=== PATIENT | male | born 1945 | race Caucasian/White ===

== ENCOUNTER → 2016-12-14 | Outpatient (CLI) | payer MEDICARE, MEDICAID ==
[~2016-12-14] MED LIST: ALLO300T2 PO; CEPH-460 PO; CLON0.1T PO; CLOP75TA PO; DILT180C PO; FISH1000 PO; FURO40TA PO; GABA300C5 PO; HYDR-3580 PO; HYDR0.05 TOPICAL; ISOS30TA15 PO; LISI-519 PO; METO50TA PO; OMEP20TA PO; OXYC-392 PO; POTA-163 PO; WARF-58 PO; ZOLP10TA3 PO
[2016-12-14 13:53] LABS: INTERNATIONAL NORMALIZED RATIO 1.9 RATIO; PROTHROMBIN TIME - PATIENT 21.6 SEC (9.8-11.6)
== END ==
LOC: PLAB 12:01
PROVIDERS: ATTEND Family Medicine
DX: I48.91 Unspecified atrial fibrillation (principal)
CPT/HCPCS: 36415; 85610

== ENCOUNTER → 2017-04-09 | Outpatient (CLI) | payer MEDICAID, MEDICARE ==
[2017-04-09 09:33] LABS: INTERNATIONAL NORMALIZED RATIO 1.5 RATIO; PROTHROMBIN TIME - PATIENT 17.4 SEC (9.8-11.6)
[2017-04-09 13:31] LABS: AUTOMATED NEUTROPHIL # 2.9 TH/MM3 (1.8-7.7); BASOPHIL % 0.8 % (0.0-2.0); EOSINOPHIL # 0.3 TH/MM3 (0-0.4); EOSINOPHIL % 5.2 % (0.0-4.0); LYMPH % 23.2 % (9.0-44.0); LYMPHOCYTE # 1.1 TH/MM3 (1.0-4.8); MEAN CELL VOLUME 86.4 FL (80.0-100.0); MEAN CORPUSCULAR HEMOGLOBIN 26.6 PG (27.0-34.0); MEAN CORPUSCULAR HGB CONC 30.7 % (32.0-36.0); MONO % 12.4 % (0.0-8.0); NEUT % 58.4 % (16.0-70.0); PLATELET COUNT 224 TH/MM3 (150-450); RED BLOOD COUNT 4.51 MIL/MM3 (4.50-5.90); RED CELL DISTRIBUTION WIDTH 16.9 % (11.6-17.2); WHITE BLOOD COUNT 4.9 TH/MM3 (4.0-11.0)
[2017-04-09 13:36] LABS: HEMO FLAGS AUTO DIFF
[2017-04-09 14:00] LABS: ANION GAP 6 MEQ/L (5-15); AST (GOT) 18 U/L (15-37); BICARBONATE 29.7 MEQ/L (21.0-32.0); BLOOD UREA NITROGEN 13 MG/DL (7-18); CHLORIDE 103 MEQ/L (98-107); GLOMERULAR FILTRATION RATE 84 ML/MIN (>89); GLUCOSE,FASTING 118 MG/DL (74-99); POTASSIUM 4.2 MEQ/L (3.5-5.1); SODIUM (NA) 139 MEQ/L (136-145)
[2017-04-09 14:06] LABS: PLATELET ESTIMATE SMEAR NORMAL (NORMAL); PLATELET MORPHOLOGY NORMAL (NORMAL); SCAN/DIFF AUTO DIFF CONFIRMED
[2017-04-09 14:11] LABS: ALKALINE PHOSPHATASE 115 U/L (45-117); ALT (GPT) 15 U/L (12-78); HDL CHOLESTEROL 38.6 MG/DL (40.0-60.0); LDL CHOLESTEROL 124 MG/DL (0-99); TOTAL BILIRUBIN ADULT 0.9 MG/DL (0.2-1.0)
== END ==
LOC: PLAB 08:10
PROVIDERS: ATTEND Family Medicine
DX: E78.5 Hyperlipidemia, unspecified (principal); I73.9 Peripheral vascular disease, unspecified; I48.91 Unspecified atrial fibrillation; Z68.30 Body mass index [BMI] 30.0-30.9, adult
CPT/HCPCS: 36415; 80053; 80061; 84443; 85025; 85610

== ENCOUNTER → 2017-08-16 | Outpatient (CLI) | payer MEDICARE ==
[2017-08-16 16:08] LABS: INTERNATIONAL NORMALIZED RATIO 1.9 RATIO; PROTHROMBIN TIME - PATIENT 21.6 SEC (9.8-11.6)
[2017-08-16 16:18] LABS: HEMATOCRIT 39.9 % (39.0-51.0); MEAN CELL VOLUME 87.8 FL (80.0-100.0); MEAN CORPUSCULAR HEMOGLOBIN 27.8 PG (27.0-34.0); MEAN CORPUSCULAR HGB CONC 31.6 % (32.0-36.0); PLATELET COUNT 220 TH/MM3 (150-450); RED BLOOD COUNT 4.54 MIL/MM3 (4.50-5.90); RED CELL DISTRIBUTION WIDTH 17.7 % (11.6-17.2); REVIEW FLAG FINAL; WHITE BLOOD COUNT 5.2 TH/MM3 (4.0-11.0)
[2017-08-16 16:32] LABS: ANION GAP 10 MEQ/L (5-15); AST (GOT) 16 U/L (15-37); BICARBONATE 26.1 MEQ/L (21.0-32.0); BLOOD UREA NITROGEN 18 MG/DL (7-18); CHLORIDE 101 MEQ/L (98-107); GLOMERULAR FILTRATION RATE 66 ML/MIN (>89); GLUCOSE,FASTING 95 MG/DL (74-99); POTASSIUM 4.4 MEQ/L (3.5-5.1); SODIUM (NA) 137 MEQ/L (136-145)
[2017-08-16 16:33] LABS: ALT (GPT) 15 U/L (12-78)
[2017-08-16 16:42] LABS: ALKALINE PHOSPHATASE 124 U/L (45-117); HDL CHOLESTEROL 32.1 MG/DL (40.0-60.0); LDL CHOLESTEROL 137 MG/DL (0-99); TOTAL BILIRUBIN ADULT 0.9 MG/DL (0.2-1.0)
== END ==
LOC: PLAB 08-09 13:42
PROVIDERS: ATTEND Family Medicine
DX: E78.5 Hyperlipidemia, unspecified (principal); I73.9 Peripheral vascular disease, unspecified; I48.91 Unspecified atrial fibrillation
CPT/HCPCS: 36415; 80053; 80061; 84443; 85027; 85610

== ENCOUNTER → 2017-12-07 | Outpatient (CLI) | payer MEDICARE ==
[~2017-12-07] MED LIST changes: -ISOS30TA15 PO; +ISOS30TA17 PO; -OMEP20TA PO; +OMEP20TA93 PO
[2017-12-07 16:52] LABS: INTERNATIONAL NORMALIZED RATIO 2.7 RATIO; PROTHROMBIN TIME - PATIENT 27.1 SEC (9.8-11.6)
[2017-12-07 17:28] LABS: HEMATOCRIT 37.4 % (39.0-51.0); HEMOGLOBIN 12.2 GM/DL (13.0-17.0); MEAN CELL VOLUME 90.7 FL (80.0-100.0); MEAN CORPUSCULAR HEMOGLOBIN 29.7 PG (27.0-34.0); MEAN CORPUSCULAR HGB CONC 32.7 % (32.0-36.0); MEAN PLATELET VOLUME 9.5 FL (7.0-11.0); PLATELET COUNT 246 TH/MM3 (150-450); RED BLOOD COUNT 4.13 MIL/MM3 (4.50-5.90); RED CELL DISTRIBUTION WIDTH 16.2 % (11.6-17.2); WHITE BLOOD COUNT 5.5 TH/MM3 (4.0-11.0)
[2017-12-07 17:33] LABS: ALBUMIN 3.2 GM/DL (3.4-5.0); ALT (GPT) 19 U/L (12-78); AST (GOT) 14 U/L (15-37); BICARBONATE 28.3 MEQ/L (21.0-32.0); BLOOD UREA NITROGEN 16 MG/DL (7-18); CALCIUM 8.8 MG/DL (8.5-10.1); CHLORIDE 97 MEQ/L (98-107); CHOLESTEROL 183 MG/DL (120-200); CREATININE 1.36 MG/DL (0.60-1.30); GLOMERULAR FILTRATION RATE 52 ML/MIN (>89); GLUCOSE,FASTING 103 MG/DL (74-99); SODIUM (NA) 131 MEQ/L (136-145)
[2017-12-07 17:43] LABS: ALKALINE PHOSPHATASE 123 U/L (45-117); CHOLESTEROL/ HDL RATIO 6.12 RATIO; HDL CHOLESTEROL 29.9 MG/DL (40.0-60.0); LDL CHOLESTEROL 135 MG/DL (0-99); TOTAL PROTEIN 7.5 GM/DL (6.4-8.2); TRIGLYCERIDES 93 MG/DL (42-150)
== END ==
LOC: PLAB 14:38
PROVIDERS: ATTEND Family Medicine
DX: E78.5 Hyperlipidemia, unspecified (principal); I73.9 Peripheral vascular disease, unspecified; I48.91 Unspecified atrial fibrillation; M1A.0790 Idiopathic chronic gout, unspecified ankle and foot, without tophus (tophi)
CPT/HCPCS: 36415; 80053; 80061; 84443; 84550; 85027; 85610

== ENCOUNTER → 2018-03-08 | Outpatient (CLI) | payer MEDICARE ==
[2018-03-08 15:02] LABS: INTERNATIONAL NORMALIZED RATIO 2.2 RATIO; PROTHROMBIN TIME - PATIENT 22.5 SEC (9.8-11.6)
[2018-03-08 18:32] LABS: BICARBONATE 28.4 MEQ/L (21.0-32.0); CALCIUM 9.2 MG/DL (8.5-10.1); CREATININE 1.48 MG/DL (0.60-1.30)
== END ==
LOC: PLAB 12:17
PROVIDERS: ATTEND Family Medicine
DX: I48.91 Unspecified atrial fibrillation (principal); N28.9 Disorder of kidney and ureter, unspecified
CPT/HCPCS: 36415; 80048; 85610

== ENCOUNTER → 2018-04-19 | Outpatient (CLI) | payer MEDICARE ==
[2018-04-19 14:39] LABS: INTERNATIONAL NORMALIZED RATIO 3.5 RATIO; PROTHROMBIN TIME - PATIENT 35.6 SEC (9.8-11.6)
[2018-04-19 17:41] LABS: ALBUMIN 3.5 GM/DL (3.4-5.0); AST (GOT) 20 U/L (15-37); BICARBONATE 26.7 MEQ/L (21.0-32.0); BLOOD UREA NITROGEN 16 MG/DL (7-18); CALCIUM 9.1 MG/DL (8.5-10.1); CHLORIDE 100 MEQ/L (98-107); CREATININE 1.42 MG/DL (0.60-1.30); GLOMERULAR FILTRATION RATE 49 ML/MIN (>89); GLUCOSE,FASTING 108 MG/DL (74-99); SODIUM (NA) 136 MEQ/L (136-145)
[2018-04-19 17:48] LABS: HEMATOCRIT 36.9 % (39.0-51.0); HEMOGLOBIN 11.5 GM/DL (13.0-17.0); MEAN CELL VOLUME 87.3 FL (80.0-100.0); MEAN CORPUSCULAR HEMOGLOBIN 27.3 PG (27.0-34.0); MEAN CORPUSCULAR HGB CONC 31.2 % (32.0-36.0); PLATELET COUNT 216 TH/MM3 (150-450); RED BLOOD COUNT 4.22 MIL/MM3 (4.50-5.90); RED CELL DISTRIBUTION WIDTH 17.6 % (11.6-17.2); WHITE BLOOD COUNT 4.6 TH/MM3 (4.0-11.0)
[2018-04-19 17:52] LABS: ALKALINE PHOSPHATASE 125 U/L (45-117); ALT (GPT) 20 U/L (12-78); CHOLESTEROL 148 MG/DL (120-200); CHOLESTEROL/ HDL RATIO 4.44 RATIO; HDL CHOLESTEROL 33.3 MG/DL (40.0-60.0); LDL CHOLESTEROL 97 MG/DL (0-99); TOTAL PROTEIN 7.2 GM/DL (6.4-8.2); TRIGLYCERIDES 89 MG/DL (42-150)
== END ==
LOC: PLAB 13:19
PROVIDERS: ATTEND Family Medicine
DX: I10 Essential (primary) hypertension (principal); I48.91 Unspecified atrial fibrillation; E78.5 Hyperlipidemia, unspecified; R73.01 Impaired fasting glucose; M10.09 Idiopathic gout, multiple sites; I70.1 Atherosclerosis of renal artery; I73.9 Peripheral vascular disease, unspecified
CPT/HCPCS: 36415; 80053; 80061; 84443; 84550; 85027; 85610

== ENCOUNTER 2018-08-03 13:26 | Inpatient (IN) ==
[2018-08-03] MEDS ORDERED: Naloxone Inj 0.4 MG/ML Vial ONE (13:29)
[2018-08-03] MEDS ORDERED: Naloxone Inj 2 MG/2 ML Vial IV.PUSH ONE (13:36)
--- NOTE | 2018-08-03 14:00 | CT ---
EXAM DATE: 08/03/2018 1:55 PM EDT AGE/SEX: 73 years / Male INDICATIONS: Fell and hit head, on blood thinners. Lethargic. CLINICAL DATA: This is the patient's initial encounter. Patient reports that signs and symptoms have been present for 1 day and indicates a pain score of 0/10. MEDICAL/SURGICAL HISTORY: Cardiovascular disease. Coronary artery stent. RADIATION DOSE: 56.35 CTDI (mGy) COMPARISON: No prior exams available for comparison. TECHNIQUE: CT of the head without contrast. Using automated exposure control and adjustment of the mA and/or kV according to patient size, radiation dose was kept as low as reasonably achievable to ob tain optimal diagnostic quality images. DICOM format image data is available electronically for revi ew and comparison. FINDINGS: Cerebrum: The ventricles are normal for age. There is decreased attenuation the periventricular whit e matter most consistent with microvascular ischemic demyelinative change. No evidence of midline marci ft, mass lesion, hemorrhage or acute infarction. No extraaxial fluid collections are seen. Posterior Fossa: The cerebellum and brainstem are intact. The 4th ventricle is midline. The cerebe llopontine angle is unremarkable. Extracranial: The visualized portion of the orbits is intact. Skull: The calvaria is intact. No evidence of skull fracture. CONCLUSION: 1. Microvascular ischemic demyelinative change. No acute intracranial abnormality identified. Electronically signed by: Nelson Franz MD 08/03/2018 1:59 PM EDT
[2018-08-03 14:14] LABS: ABG Base Excess -0.8 mmol/L (-2-2); ABG PCO2 47 mmHg (38-42); ABG PO2 98 mmHg (61-120)
[2018-08-03] MEDS ORDERED: Atropine Inj 1 MG/10 ML Syringe IV.PUSH ONE ×2 (14:21→15:08)
[2018-08-03 14:28] LABS: Baso % (Auto) 0.6 % (0.0-2.0); Eos # (Auto) 0.1 th/mm3 (0.0-0.4); Eos % (Auto) 0.8 % (0.0-4.0); Hematocrit 41.2 % (39.0-51.0); Hemoglobin 12.7 gm/dL (13.0-17.0); Lymph # (Auto) 0.7 th/mm3 (1.0-4.8); Lymph % (Auto) 10.5 % (9.0-44.0); Mean Corpuscular Hemoglobin 27.1 pg (27.0-34.0); Mono # (Auto) 0.6 th/mm3 (0.0-0.9); Mono % (Auto) 8.7 % (0.0-8.0); Neut # (Auto) 5.4 th/mm3 (1.8-7.7); Neut % (Auto) 79.4 % (16.0-70.0); Platelet Count 245 th/mm3 (150-450); Red Blood Count 4.68 mil/mm3 (4.50-5.90); Red Cell Distribution Width 18.1 % (11.6-17.2); White Blood Count 6.8 th/mm3 (4.0-11.0)
[2018-08-03 14:35] LABS: INR 1.8 Ratio; Prothrombin Time 17.8 sec (9.8-11.6)
[2018-08-03 14:39] LABS: Mean Corpuscular HGB Conc 30.8 % (32.0-36.0)
[2018-08-03 14:53] LABS: Alanine Aminotransferase 31 U/L (12-78); Albumin 3.8 g/dL (3.4-5.0); Anion Gap 10 meq/L (5-15); Calcium 8.7 mg/dL (8.5-10.1); Carbon Dioxide 26.4 meq/L (21.0-32.0); Chloride 102 meq/L (98-107); Glomerular Filtration Rate 44 mL/min (>89); Glucose,Random 146 mg/dL (74-106); Potassium 4.4 meq/L (3.5-5.1); Sodium 138 meq/L (136-145)
[2018-08-03 15:03] LABS: Alkaline Phosphatase 126 U/L (45-117); Aspartate Aminotransferase 42 U/L (15-37); Blood Urea Nitrogen 24 mg/dL (7-18); Troponin I 0.03 ng/mL (0.02-0.05)
--- NOTE | 2018-08-03 15:25 | ED ---
HPI General Chief Complaint: Altered Mental Status Stated Complaint: medical Time Seen by Provider: 08/03/18 13:36 Source: family and EMS Mode of arrival: EMS Limitations: altered mental status History of Present Illness HPI narrative: Is a 73-year-old man presents emerged department altered mental status and falls. According to the friend who is with him was known him for several decades, she left the house this morning to go to a doctor's appointment. He had been on pain medicine in the past but had not been on anything recently. His son was there with him. She got a call that he had fallen when she went there found him altered, sedated, still drowsy, and with bruises and bleeding from what was reported by the son to be multiple falls. He is on blood thinners. The son that he was with does have a known history of substance abuse. She denies that the patient himself has a history of substance abuse or opioid/pain medicine misuse. No other complaints. Related Data Allergies Allergy/AdvReac Type Severity Reaction Status Date / Time metoclopramide AdvReac Severe Confusion Verified 08/03/18 13:30 ranitidine AdvReac Severe Confusion Verified 08/03/18 13:30 Review of Systems ROS Unobtainable ROS Unobtainable: unobtainable due to mental condition PMFSH Medical History Medical History Afib (Chronic) CAD (coronary artery disease) (Chronic) CHF (congestive heart failure) (Chronic) Diabetes (Chronic) Gout (Chronic) HLD (hyperlipidemia) (Chronic) Hypertension (Chronic) Social History Social History Substance History: No History of Abuse Second Hand Smoke Exposure: Yes Smoking Status: Current every day smoker Tobacco Type: Cigarettes How Often Do You Have a Drink Containing Alcohol: Never Recent Travel in [place] within the Last 8 Weeks: No Recent Out of Country Travel within the Last 8 Weeks: No Immunization History Tetanus Immunization: Unsure Hx Influenza Vaccine This Season: No Exam Narrative Exam Narrative: GENERAL: 73-year-old man, sluggishly responsive, drowsy. SKIN: Focused skin assessment warm/dry. HEAD: Normocephalic. A lot of bruising on the face and some tenderness and a swollen lip in the front. There is no significant facial tenderness. No obvious deformity. EYES: Miotic pupils. ENT: No nasal bleeding or discharge. Mucous membranes pink and moist. NECK: Moves neck freely. No midline tenderness. CARDIOVASCULAR: Rate is slow. Somewhat irregular. RESPIRATORY: No accessory muscle use. Clear to auscultation. Breath sounds equal bilaterally. GASTROINTESTINAL: Abdomen soft, non-tender, nondistended. Hepatic and splenic margins not palpable. MUSCULOSKELETAL: No obvious deformities. No clubbing. No cyanosis. No edema. NEUROLOGICAL: Decreased alertness. Falls asleep mid sentence. Generally easily arousable. No obvious cranial nerve deficits. Motor grossly within normal limits. Normal speech. PSYCHIATRIC: Appropriate mood and affect; insight and judgment normal. Course Initial Documented Vital Signs Pulse Rate 43 L 08/03/18 13:31 Respiratory Rate 6 L 08/03/18 13:31 Blood Pressure 187/77 H 08/03/18 13:31 Pulse Oximetry 99 08/03/18 13:31 Last Documented Vital Signs Pulse Rate 43 L 08/03/18 14:04 Respiratory Rate 9 L 08/03/18 14:04 Blood Pressure 187/84 H 08/03/18 14:04 Pulse Oximetry 100 08/03/18 14:04 Medical Decision Making MDM Narrative Medical decision making narrative: 73-year-old male with altered mental status, sluggishly responsive miotic pupils suggestive of opioid poisoning. Some response to Narcan but not complete. Possible other ingestion as well. Patient also bradycardic. This could be contributing mental status or could be a secondary effect of toxic encephalopathy. Some response to Narcan. Electrolytes are unremarkable. Will plan admission to CICU for evaluation for A. fib with SVR and altered mental status from presumed toxic encephalopathy. Medical Screen Exam Complete: Yes Emergency Medical Condition: Yes Lab Data Lab results reviewed: Yes I reviewed the patient's lab results. Result diagrams: 08/03/18 13:58 08/03/18 13:58 Lab Results 08/03/18 08/03/1818 Range/Units 13:58 13:58 13:58 WBC 6.8 (4.0-11.0) th/mm3 RBC 4.68 (4.50-5.90) mil/mm3 Hgb 12.7 L (13.0-17.0) gm/dL Hct 41.2 (39.0-51.0) % MCV 88.0 (80.0-100.0) fL MCH 27.1 (27.0-34.0) pg MCHC 30.8 L (32.0-36.0) % RDW 18.1 H (11.6-17.2) % Plt Count 245 (150-450) th/mm3 MPV 10.0 (7.0-11.0) fL Neut % (Auto) 79.4 H (16.0-70.0) % Lymph % (Auto) 10.5 (9.0-44.0) % [place] % (Auto) 8.7 H (0.0-8.0) % Eos % (Auto) 0.8 (0.0-4.0) % Baso % (Auto) 0.6 (0.0-2.0) % Neut # (Auto) 5.4 (1.8-7.7) th/mm3 Lymph # (Auto) 0.7 L (1.0-4.8) th/mm3 [place] # (Auto) 0.6 (0.0-0.9) th/mm3 Eos # (Auto) 0.1 (0.0-0.4) th/mm3 Baso # (Auto) 0.0 (0.0-0.2) th/mm3 WBC Differential . Differential Comment Auto diff final PT 17.8 H (9.8-11.6) sec INR 1.8 Ratio Puncture Site Patient Temperature O2 Saturation (90-100) % ABG pH (7.380-7.420) ABG pCO2 (38-42) mmHg ABG pO2 (61-120) mmHg ABG HCO3 (22-26) mmol/L ABG O2 Content (12.0-20.0) Vol % ABG Base Excess (-2-2) mmol/L ABG Methemoglobin (0-2) % Hemoglobin (12.0-16.0) G/DL Carboxyhemoglobin (0-4) % O2 Delivery Device Liter Flow L/M Critical Value Sodium 138 (136-145) meq/L Potassium 4.4 (3.5-5.1) meq/L Chloride 102 (98-107) meq/L Carbon Dioxide 26.4 (21.0-32.0) meq/L Anion Gap 10 (5-15) meq/L BUN 24 H (7-18) mg/dL Creatinine 1.55 H (0.60-1.30) mg/dL Estimated GFR 44 L (>89) mL/min Random Glucose 146 H (74-106) mg/dL Calcium 8.7 (8.5-10.1) mg/dL Total Bilirubin 1.0 (0.2-1.0) mg/dL AST 42 H (15-37) U/L ALT 31 (12-78) U/L Alkaline Phosphatase 126 H (45-117) U/L Troponin I 0.03 (0.02-0.05) ng/mL Total Protein 8.0 (6.4-8.2) g/dL Albumin 3.8 (3.4-5.0) g/dL Serum Alcohol Less than 3 (0-5) mg/dL 08/03/18 Range/Units 14:10 WBC (4.0-11.0) th/mm3 RBC (4.50-5.90) mil/mm3 Hgb (13.0-17.0) gm/dL Hct (39.0-51.0) % MCV (80.0-100.0) fL MCH (27.0-34.0) pg MCHC (32.0-36.0) % RDW (11.6-17.2) % Plt Count (150-450) th/mm3 MPV (7.0-11.0) fL Neut % (Auto) (16.0-70.0) % Lymph % (Auto) (9.0-44.0) % [place] % (Auto) (0.0-8.0) % Eos % (Auto) (0.0-4.0) % Baso % (Auto) (0.0-2.0) % Neut # (Auto) (1.8-7.7) th/mm3 Lymph # (Auto) (1.0-4.8) th/mm3 [place] # (Auto) (0.0-0.9) th/mm3 Eos # (Auto) (0.0-0.4) th/mm3 Baso # (Auto) (0.0-0.2) th/mm3 WBC Differential Differential Comment PT (9.8-11.6) sec INR Ratio Puncture Site Left brachial Patient Temperature 98.6 O2 Saturation 94 (90-100) % ABG pH 7.33 L (7.380-7.420) ABG pCO2 47 H (38-42) mmHg ABG pO2 98 (61-120) mmHg ABG HCO3 24 (22-26) mmol/L ABG O2 Content 16.2 (12.0-20.0) Vol % ABG Base Excess -0.8 (-2-2) mmol/L ABG Methemoglobin 0.6 (0-2) % Hemoglobin 12.2 (12.0-16.0) G/DL Carboxyhemoglobin 2.3 (0-4) % O2 Delivery Device Nasal cannula Liter Flow 2.00 L/M Critical Value No Sodium (136-145) meq/L Potassium (3.5-5.1) meq/L Chloride (98-107) meq/L Carbon Dioxide (21.0-32.0) meq/L Anion Gap (5-15) meq/L BUN (7-18) mg/dL Creatinine (0.60-1.30) mg/dL Estimated GFR (>89) mL/min Random Glucose (74-106) mg/dL Calcium (8.5-10.1) mg/dL Total Bilirubin (0.2-1.0) mg/dL AST (15-37) U/L ALT (12-78) U/L Alkaline Phosphatase (45-117) U/L Troponin I (0.02-0.05) ng/mL Total Protein (6.4-8.2) g/dL Albumin (3.4-5.0) g/dL Serum Alcohol (0-5) mg/dL Imaging Data Radiologist's impression: Head CT 08/03/18 13:37 CONCLUSION: 1. Microvascular ischemic demyelinative change. No acute intracranial abnormality identified. Negative. Discharge Plan Discharge Disposition Patient Disposition: 30 Still Patient Discharge Details Diagnosis: Encephalopathy, toxic, Atrial fibrillation with slow ventricular response Physicians Team ED Provider: Dennis Larry Primary Care Provider: Anjelica Garcia Discharge Interventions Interventions: Vital Signs Last Done: 08/03/18 15:14 Status ED Status: With Doctor
[2018-08-03] MEDS ORDERED: Bisacodyl 10 MG Supp RECTAL PRN (15:39)
[2018-08-03] MEDS ORDERED: Enoxaparin Inj 40 MG/0.4 ML Syringe SQ SCH ×2 (15:45→18:00)
--- NOTE | 2018-08-03 16:02 | P.HP ---
History of Present Illness Primary Care Physician: Anjelica Garcia MD Chief Complaint: altered mental status History of Present Illness: 73-year-old man presents emerged department altered mental status and falls. According to the friend who is with him was known him for several decades, she left the house this morning to go to a doctor's appointment. He had been on pain medicine in the past but had not been on anything recently. His son was there with him. She got a call that he had fallen when she went there found him altered, sedated, still drowsy, and with bruises and bleeding from what was reported by the son to be multiple falls. He is on blood thinners. The son that he was with does have a known history of substance abuse. She denies that the patient himself has a history of substance abuse or opioid/pain medicine misuse. No other complaints. Patient takes lortabs at times for chorionic pain. Patient is on coumadin 3 mg po daily, INR is 1.8. CT head no signs of bleeding Past surgical and family history obtained from records and per discussion with daughter by phone: Cardiac cath, bipass ( surgical) Family Hx : mother leukemia. Stroke grandmother - Diagnosis (1) Encephalopathy, toxic (2) Atrial fibrillation with slow ventricular response Inpatient Certification: I certify that the inpatient services were ordered in accordance with Medicare regulations governing the order. This includes certification that hospital inpatient services are reasonable and necessary and in the case of services not specified as inpatient-only under 42 CFR 419.22(n), that they are appropriately provided as inpatient services in accordance to with the 2-midnight benchmark under 43 CFR 412.3(e) Estimated Total Length of Stay (Days): 3 Plans for Post Hospital Care: Not yet determined Review of Systems All other systems reviewed negative except as stated in HPI, unobtainable due to mental status PMFSH - History History Provided By: Patient, Family Member (daughter by phone and girlfriend at bedside ) - Medical History Medical History: Medical History (Last Reviewed 08/03/18 @ 17:05 by Jessica Barros MD) Afib CAD (coronary artery disease) CHF (congestive heart failure) Diabetes Gout HLD (hyperlipidemia) Hypertension - Surgical History Surgical History: Surgical History (Last Reviewed 08/03/18 @ 17:05 by Jessica Barros MD) H/O aortic valve replacement - Tobacco History Second Hand Smoke Exposure: Yes Tobacco Use In Past 30 Days: Yes Smoking Status: Current every day smoker Tobacco Type: Cigarettes - Alcohol History How Often Do You Have a Drink Containing Alcohol: Never - Substance Use History Substance History: No History of Abuse - Travel History Recent Travel in the [place] Within the Last 8 Weeks: No Recent Travel Out of the Country Within the Last 8 Weeks: No - Immunization History Tetanus Immunization: Unsure Hx Influenza Vaccine This Season: No Medications and Allergies Active Medications: Active Medications Al Hydroxide/Mg Hydroxide (Milk Of Magnesia Liq) 30 ml PO Q12H PRN PRN Reason: Mild Constipation Bisacodyl (Dulcolax Supp) 10 mg RECTAL DAILY PRN PRN Reason: SEVERE CONSITIPATION Enoxaparin Sodium (Lovenox Inj) 40 mg SQ Q24H GHAZAL Sodium Chloride (Ns Inj) 1,000 mls @ 100 mls/hr IV.CONT .Q10H GHAZAL Lactulose (Lactulose Liq) 30 ml PO DAILY PRN PRN Reason: SEVERE CONSITIPATION Ondansetron HCl (Zofran Inj) 4 mg IV.PUSH Q6H PRN PRN Reason: NAUSEA OR VOMITING Senna/Docusate Sodium (Toshia-Colace) 1 tab PO BID GHAZAL Sennosides (Senokot) 17.2 mg PO Q12H PRN PRN Reason: Moderate Constipation Allergies Allergy/AdvReac Type Severity Reaction Status Date / Time metoclopramide AdvReac Severe Confusion Verified 08/03/18 13:30 ranitidine AdvReac Severe Confusion Verified 08/03/18 13:30 Exam Vital signs: Vital Signs 08/03/18 13:31 08/03/18 14:04 08/03/18 15:14 Pulse Rate 43 L 43 L 47 L Respiratory Rate 6 L 9 L 10 L Blood Pressure 187/77 H 187/84 H 123/71 Pulse Oximetry 99 100 99 Intake & Output 08/02/18 08/03/18 08/03/18 18:59 06:59 18:59 Weight 84.822 kg Narrative: GENERAL: Elderly male, lethargic. SKIN: Warm and dry. HEAD: Normocephalic. Multiple bruising on the face and some tenderness and a swollen lip in the front. There is no significant facial tenderness. No obvious deformity. EYES: Pupils equal and round. No scleral icterus. No injection or drainage. ENT: No nasal bleeding or discharge. Mucous membranes pink and moist. NECK: Trachea midline. No JVD. CARDIOVASCULAR: Irregular rate and rhythm, bradycardic RESPIRATORY: No accessory muscle use. Clear to auscultation. Breath sounds equal bilaterally. GASTROINTESTINAL: Abdomen soft, non-tender, nondistended. MUSCULOSKELETAL: Extremities without clubbing, cyanosis, or edema. No obvious deformities. NEUROLOGICAL: Altered mental status, lethargic. Falls asleep mid sentence, but easily arousable. No obvious cranial nerve deficits. Motor grossly within normal limits. Normal speech. PSYCHIATRIC: Appropriate mood and affect; insight and judgment normal. Results - Labs CBC & Chem 7: 08/03/18 13:58 08/03/18 13:58 Labs: Laboratory Results - last 24 hr 08/03/18 08/03/18 08/03/18 13:58 13:58 13:58 WBC 6.8 RBC 4.68 Hgb 12.7 L Hct 41.2 MCV 88.0 MCH 27.1 MCHC 30.8 L RDW 18.1 H Plt Count 245 MPV 10.0 Neut % (Auto) 79.4 H Lymph % (Auto) 10.5 [place] % (Auto) 8.7 H Eos % (Auto) 0.8 Baso % (Auto) 0.6 Neut # (Auto) 5.4 Lymph # (Auto) 0.7 L [place] # (Auto) 0.6 Eos # (Auto) 0.1 Baso # (Auto) 0.0 WBC Differential . Differential Comment Auto diff final PT 17.8 H INR 1.8 Puncture Site Patient Temperature O2 Saturation ABG pH ABG pCO2 ABG pO2 ABG HCO3 ABG O2 Content ABG Base Excess ABG Methemoglobin Hemoglobin Carboxyhemoglobin O2 Delivery Device Liter Flow Critical Value Sodium 138 Potassium 4.4 Chloride 102 Carbon Dioxide 26.4 Anion Gap 10 BUN 24 H Creatinine 1.55 H Estimated GFR 44 L Random Glucose 146 H Calcium 8.7 Total Bilirubin 1.0 AST 42 H ALT 31 Alkaline Phosphatase 126 H Troponin I 0.03 Total Protein 8.0 Albumin 3.8 Serum Alcohol Less than 3 08/03/18 14:10 WBC RBC Hgb Hct MCV MCH MCHC RDW Plt Count MPV Neut % (Auto) Lymph % (Auto) [place] % (Auto) Eos % (Auto) Baso % (Auto) Neut # (Auto) Lymph # (Auto) [place] # (Auto) Eos # (Auto) Baso # (Auto) WBC Differential Differential Comment PT INR Puncture Site Left brachial Patient Temperature 98.6 O2 Saturation 94 ABG pH 7.33 L ABG pCO2 47 H ABG pO2 98 ABG HCO3 24 ABG O2 Content 16.2 ABG Base Excess -0.8 ABG Methemoglobin 0.6 Hemoglobin 12.2 Carboxyhemoglobin 2.3 O2 Delivery Device Nasal cannula Liter Flow 2.00 Critical Value No Sodium Potassium Chloride Carbon Dioxide Anion Gap BUN Creatinine Estimated GFR Random Glucose Calcium Total Bilirubin AST ALT Alkaline Phosphatase Troponin I Total Protein Albumin Serum Alcohol - Imaging Impressions Head CT 08/03/18 13:37 CONCLUSION: 1. Microvascular ischemic demyelinative change. No acute intracranial abnormality identified. Caprini VTE Risk Assessment Caprini VTE Risk Assessment: Moderate/High Risk (score >= 2) Caprini Risk Assessment Model: Point Value = 1 Point Value = 2 Point Value = 3 Point Value = 5 Age 41-60 Minor surgery BMI > 25 kg/m2 Swollen legs Varicose veins or History of unexplained or recurrent spontaneous Oral contraceptives or hormone replacement Sepsis (< 1 month) Serious lung disease, including pneumonia (< 1 month) Abnormal pulmonary function Acute myocardial infarction Congestive heart failure (< 1 month) History of inflammatory bowel disease Medical patient at bed rest Age 61-74 Arthroscopic surgery Major open surgery (> 45 min) Laparoscopic surgery (> 45 min) Malignancy Confined to bed (> 72 hours) Immobilizing plaster cast Central venous access Age >= 75 History of VTE Family history of VTE Factor V Leiden Prothrombin [id number] Lupus anticoagulant Anticardiolipin antibodies Elevated serum homocysteine Heparin-induced thrombocytopenia Other congenital or acquired thrombophilia Stroke (< 1 month) Elective arthroplasty Hip, pelvis, or leg fracture Acute spinal cord injury (< 1 month) Prophylaxis Regimen: Total Risk Factor Score Risk Level Prophylaxis Regimen 0-1 Low Early ambulation 2 Moderate Order ONE of the following: *Sequential Compression Device (SCD) *Heparin 5000 units SQ BID 3-4 Higher Order ONE of the following medications: *Heparin 5000 units SQ TID *Enoxaparin/Lovenox 40 mg SQ daily (WT < 150 kg, CrCl > 30 mL/min) *Enoxaparin/Lovenox 30 mg SQ daily (WT < 150 kg, CrCl > 10-29 mL/min) *Enoxaparin/Lovenox 30 mg SQ BID (WT < 150 kg, CrCl > 30 mL/min) AND/OR *Sequential Compression Device (SCD) 5 or more Highest Order ONE of the following medications: *Heparin 5000 units SQ TID (Preferred with Epidurals) *Enoxaparin/Lovenox 40 mg SQ daily (WT < 150 kg, CrCl > 30 mL/min) *Enoxaparin/Lovenox 30 mg SQ daily (WT < 150 kg, CrCl > 10-29 mL/min) *Enoxaparin/Lovenox 30 mg SQ BID (WT < 150 kg, CrCl > 30 mL/min) AND *Sequential Compression Device (SCD) Assessment and Plan - Assessment (1) Encephalopathy, toxic Code(s): G92 - Toxic encephalopathy Status: Acute (2) Atrial fibrillation with slow ventricular response Code(s): I48.91 - Unspecified atrial fibrillation Status: Acute - Plan 73-year-old male with altered mental status, sluggishly responsive miotic pupils suggestive of opioid poisoning. Some response to Narcan but not complete. Possible other ingestion as well. Patient also bradycardic. This could be contributing mental status or could be a secondary effect of toxic encephalopathy. Some response to Narcan. Electrolytes are unremarkable. Admission to CICU for evaluation for A. fib with SVR and altered mental status from presumed toxic encephalopathy. Fall unsure if mechanical fall or 2/2 AMS. Patient is taking also coumadin might contribute to falls, also on lortab prn for chronic pain Encephalopathy, poss toxic Atrial fibrillation with slow ventricular response HR in 30-40s on admission Head CT reviewed shows Microvascular ischemic demyelinative change. No acute intracranial abnormality identified. no bleeding Neuro checks, if patient deteriorates consider MRI brain and also consider neurology consult. Will also do EEG Patient received narcan 0.4 mg IV x2 Also received atropine in the ED. Atropine per zhao protocol Monitor HR on telemetry Consult PT and ST. NPO at this tiem as is AMS and high risk of aspiration. Advance diet as patient Urine tox ordered in ER and still pending. Patient takes lortabs prn for pain not sure when taken last Will consult his cardiology Dr Smith Will do 2D ECHO Will check B12 Patien tis taking coumadin INR is 1.8 on admsiion however due to risk of bleeding monitor closely. restart coumadin as indiacted, monitro INR, consider switching to novel anticoagulation. Chronic medical problems appear stable at this time: CAD (coronary artery disease), CHF (congestive heart failure) , Gout, HLD (hyperlipidemia), Hypertension Resume home meds as indicated. Do reconcile meds The patient is not on metroprolol anymore per daughter who is a ICU nurse , monitor closely VS and monitor on telemetry. Consult Dr Smith his cardiology Dr. Valdes and monitor closely BS. Patient is NPO at this time due to AMS. DVT ppx with lovenox Discussed Condition With: The patient, his daughter by phone Mrs Garcia who is a respected ICU nurse, Dr Larry ED physician, significant other/girlfriend at bedside
[2018-08-03 17:03] LABS: Amphetamine Screen,Urine Neg (Neg); Barbiturate Screen,Urine Neg (Neg); Cannabinoid Screen,Urine Neg (Neg); Cocaine Screen,Urine Neg (Neg)
[2018-08-03 17:07] LABS: Opiate Screen,Urine Neg (Neg)
[2018-08-03] MEDS: Sod Chloride 0.9% Inj 1,000 ML IV.CONT SCH (17:23)
[2018-08-03] MEDS: Enoxaparin Inj 40 MG/0.4 ML Syringe SQ SCH (19:24)
[2018-08-03] MEDS: Senna/Docusate Sodium 8.6/50 MG Tablet PO SCH (20:58)
--- NOTE | 2018-08-03 23:20 | US ---
EXAM DATE: 08/03/2018 10:59 PM EDT AGE/SEX: 73 years / Male INDICATIONS: Syncope. CLINICAL DATA: This is the patient's initial encounter. Patient reports that signs and symptoms have been present for 1 day and indicates a pain score of 0/10. MEDICAL/SURGICAL HISTORY: . Atrial fibrillation. Coronary artery disease. Congestive heart fa ilure. Diabetes. Gout. Hyperlipidemia. Hypertension. . Aortic valve replacement. COMPARISON: No prior exams available for comparison. VELOCITY PARAMETERS: ICA/CCA Ratio: Right 2.9 , Left 1.4 ICA: Right 169 cm/sec, Left 60 cm/sec CCA: Right 59 cm/sec, Left 43 cm/sec ECA: Right 172 cm/sec, Left 398 cm/sec Vertebral: Right 63 cm/sec antegrade, Left 50 cm/sec antegrade FINDINGS: Right Carotid: Moderate arteriosclerotic plaque is visualized.The waveforms are within normal limits . Left Carotid: Moderate arteriosclerotic plaque is visualized. The waveforms are within normal limits . Other: None. CONCLUSION: 1. Right Internal Carotid Artery: Moderate atherosclerotic plaque with elevated PSV ratio of 2.9 whi ch could indicate hemodynamically significant stenosis. This would be better evaluated with CTA carot ids. 2. Left Internal Carotid Artery: Moderate plaque without significant stenosis. Electronically signed by: Alexander Ellis MD 08/03/2018 11:19 PM EDT
[2018-08-04] MEDS: Sod Chloride 0.9% Inj 1,000 ML IV.CONT SCH ×3 (01:49→14:58)
[2018-08-04 07:01] LABS: Baso % (Auto) 0.5 % (0.0-2.0); Eos # (Auto) 0.1 th/mm3 (0.0-0.4); Eos % (Auto) 1.6 % (0.0-4.0); Hematocrit 37.5 % (39.0-51.0); Hemoglobin 11.9 gm/dL (13.0-17.0); Lymph # (Auto) 1.2 th/mm3 (1.0-4.8); Lymph % (Auto) 23.2 % (9.0-44.0); Mean Corpuscular HGB Conc 31.7 % (32.0-36.0); Mean Corpuscular Hemoglobin 27.2 pg (27.0-34.0); Mean Corpuscular Volume 85.8 fL (80.0-100.0); Mean Platelet Volume 10.2 fL (7.0-11.0); Mono # (Auto) 0.9 th/mm3 (0.0-0.9); Mono % (Auto) 16.2 % (0.0-8.0); Neut # (Auto) 3.1 th/mm3 (1.8-7.7); Neut % (Auto) 58.5 % (16.0-70.0); Platelet Count 225 th/mm3 (150-450); Red Blood Count 4.37 mil/mm3 (4.50-5.90); Red Cell Distribution Width 18.5 % (11.6-17.2); White Blood Count 5.2 th/mm3 (4.0-11.0)
[2018-08-04 07:11] LABS: Calcium 8.7 mg/dL (8.5-10.1); Carbon Dioxide 25.8 meq/L (21.0-32.0)
[2018-08-04] MEDS: Senna/Docusate Sodium 8.6/50 MG Tablet PO SCH ×2 (09:15→21:43)
[2018-08-04] MEDS ORDERED: NIFEDIPINE 30 MG PO SCH ×2 (10:20→21:00)
--- NOTE | 2018-08-04 11:51 | P.PN ---
Subjective Interval history: Follow up for fall, altered mental status. Patient is currently doing well. He is coherent and pleasant. He fell from bed and as he tried to get up, he injured his face at home. Denies any chest pain, shortness of breath, fever, chills. No dizziness, lightheadedness prior to his fall. Physical Exam Vital signs: Vital Signs 08/03/18 13:31 08/03/18 14:04 08/03/18 15:14 Temperature Pulse Rate 43 L 43 L 47 L Respiratory Rate 6 L 9 L 10 L Blood Pressure 187/77 H 187/84 H 123/71 Pulse Oximetry 99 100 99 08/03/18 17:20 08/03/18 19:00 08/03/18 20:00 Temperature 98.1 F Pulse Rate 42 L 40 L 40 L Respiratory Rate 12 15 Blood Pressure 175/74 H 168/76 H Pulse Oximetry 97 97 08/03/18 21:02 08/03/18 22:00 08/03/18 23:00 Temperature Pulse Rate 46 L 44 L 45 L Respiratory Rate Blood Pressure Pulse Oximetry 08/04/18 00:00 08/04/18 01:00 08/04/18 02:00 Temperature 98.0 F Pulse Rate 48 L 51 L 44 L Respiratory Rate 16 Blood Pressure 137/83 Pulse Oximetry 95 08/04/18 03:00 08/04/18 04:00 08/04/18 05:00 Temperature 97.4 F L Pulse Rate 59 L 48 L 41 L Respiratory Rate 18 Blood Pressure 146/75 H Pulse Oximetry 97 08/04/18 06:00 08/04/18 08:00 08/04/18 09:26 Temperature 97.5 F L Pulse Rate 47 L 66 Respiratory Rate Blood Pressure 183/86 H Pulse Oximetry 95 96 08/04/18 11:10 08/04/18 11:22 Temperature Pulse Rate 59 L Respiratory Rate Blood Pressure 170/83 H Pulse Oximetry 95 95 Intake & Output 08/03/18 08/04/18 08/04/18 18:59 06:59 18:59 Intake Total 0 / 0 1240 / 1240 Output Total 200 / 200 Balance 0 / 0 1040 / 1040 Weight 84.822 kg 86.6 kg Intake: IV 1000 / 1000 NS Inj 1,000 ML @ 100 mls/hr IV 1000 / 1000 .CONT .Q10H GHAZAL Rx#:[id number] Oral 0 / 0 240 / 240 Output: Urine 200 / 200 Other: # Voids 2 Date of Last Bowel Movement 08/03/18 Weight On Admission 86.183 kg Narrative: GENERAL: Alert, Oriented x 3, NAD. SKIN: Warm and dry. Multiple minor abrasions and one 5-6 cm long skin laceration on forehead. HEAD: Normocephalic. EYES: No scleral icterus. No injection or drainage. NECK: Supple, trachea midline. No JVD or lymphadenopathy. CARDIOVASCULAR: Regular rate and rhythm without murmurs, gallops, or rubs. RESPIRATORY: Breath sounds equal bilaterally. No accessory muscle use. GASTROINTESTINAL: Abdomen soft, non-tender, nondistended. MUSCULOSKELETAL: No cyanosis, or edema. BACK: Nontender without obvious deformity. No CVA tenderness. Results - Labs CBC & Chem 7: 08/04/18 06:02 08/04/18 06:02 Laboratory Results - last 24 hr 08/03/18 08/03/18 08/03/18 13:58 13:58 13:58 WBC 6.8 RBC 4.68 Hgb 12.7 L Hct 41.2 MCV 88.0 MCH 27.1 MCHC 30.8 L RDW 18.1 H Plt Count 245 MPV 10.0 Neut % (Auto) 79.4 H Lymph % (Auto) 10.5 [place] % (Auto) 8.7 H Eos % (Auto) 0.8 Baso % (Auto) 0.6 Neut # (Auto) 5.4 Lymph # (Auto) 0.7 L [place] # (Auto) 0.6 Eos # (Auto) 0.1 Baso # (Auto) 0.0 WBC Differential . Differential Comment Auto diff final PT 17.8 H INR 1.8 Puncture Site Patient Temperature O2 Saturation ABG pH ABG pCO2 ABG pO2 ABG HCO3 ABG O2 Content ABG Base Excess ABG Methemoglobin Hemoglobin Carboxyhemoglobin O2 Delivery Device Liter Flow Critical Value Sodium 138 Potassium 4.4 Chloride 102 Carbon Dioxide 26.4 Anion Gap 10 BUN 24 H Creatinine 1.55 H Estimated GFR 44 L POC Glucose Random Glucose 146 H Calcium 8.7 Total Bilirubin 1.0 AST 42 H ALT 31 Alkaline Phosphatase 126 H Troponin I 0.03 Total Protein 8.0 Albumin 3.8 Vitamin B12 Urine Opiates Screen Ur Barbiturates Screen Ur Amphetamines Screen U Benzodiazepines Scrn Urine Cocaine Screen U Cannabinoids Screen Serum Alcohol Less than 3 08/03/18 08/03/18 08/03/18 13:58 14:10 15:15 WBC RBC Hgb Hct MCV MCH MCHC RDW Plt Count MPV Neut % (Auto) Lymph % (Auto) [place] % (Auto) Eos % (Auto) Baso % (Auto) Neut # (Auto) Lymph # (Auto) [place] # (Auto) Eos # (Auto) Baso # (Auto) WBC Differential Differential Comment PT INR Puncture Site Left brachial Patient Temperature 98.6 O2 Saturation 94 ABG pH 7.33 L ABG pCO2 47 H ABG pO2 98 ABG HCO3 24 ABG O2 Content 16.2 ABG Base Excess -0.8 ABG Methemoglobin 0.6 Hemoglobin 12.2 Carboxyhemoglobin 2.3 O2 Delivery Device Nasal cannula Liter Flow 2.00 Critical Value No Sodium Potassium Chloride Carbon Dioxide Anion Gap BUN Creatinine Estimated GFR POC Glucose Random Glucose Calcium Total Bilirubin AST ALT Alkaline Phosphatase Troponin I Total Protein Albumin Vitamin B12 612 Urine Opiates Screen Neg Ur Barbiturates Screen Neg Ur Amphetamines Screen Neg U Benzodiazepines Scrn Neg Urine Cocaine Screen Neg U Cannabinoids Screen Neg Serum Alcohol 08/03/18 08/03/18 08/04/18 19:12 23:53 05:48 WBC RBC Hgb Hct MCV MCH MCHC RDW Plt Count MPV Neut % (Auto) Lymph % (Auto) [place] % (Auto) Eos % (Auto) Baso % (Auto) Neut # (Auto) Lymph # (Auto) [place] # (Auto) Eos # (Auto) Baso # (Auto) WBC Differential Differential Comment PT INR Puncture Site Patient Temperature O2 Saturation ABG pH ABG pCO2 ABG pO2 ABG HCO3 ABG O2 Content ABG Base Excess ABG Methemoglobin Hemoglobin Carboxyhemoglobin O2 Delivery Device Liter Flow Critical Value Sodium Potassium Chloride Carbon Dioxide Anion Gap BUN Creatinine Estimated GFR POC Glucose 124 H 111 H 108 Random Glucose Calcium Total Bilirubin AST ALT Alkaline Phosphatase Troponin I Total Protein Albumin Vitamin B12 Urine Opiates Screen Ur Barbiturates Screen Ur Amphetamines Screen U Benzodiazepines Scrn Urine Cocaine Screen U Cannabinoids Screen Serum Alcohol 08/04/18 08/04/18 06:02 06:02 WBC 5.2 RBC 4.37 L Hgb 11.9 L Hct 37.5 L MCV 85.8 MCH 27.2 MCHC 31.7 L RDW 18.5 H Plt Count 225 MPV 10.2 Neut % (Auto) 58.5 Lymph % (Auto) 23.2 [place] % (Auto) 16.2 H Eos % (Auto) 1.6 Baso % (Auto) 0.5 Neut # (Auto) 3.1 Lymph # (Auto) 1.2 [place] # (Auto) 0.9 Eos # (Auto) 0.1 Baso # (Auto) 0.0 WBC Differential . Differential Comment Auto diff final PT INR Puncture Site Patient Temperature O2 Saturation ABG pH ABG pCO2 ABG pO2 ABG HCO3 ABG O2 Content ABG Base Excess ABG Methemoglobin Hemoglobin Carboxyhemoglobin O2 Delivery Device Liter Flow Critical Value Sodium 139 Potassium 4.0 Chloride 104 Carbon Dioxide 25.8 Anion Gap 9 BUN 25 H Creatinine 1.30 Estimated GFR 54 L POC Glucose Random Glucose 98 Calcium 8.7 Total Bilirubin AST ALT Alkaline Phosphatase Troponin I Total Protein Albumin Vitamin B12 Urine Opiates Screen Ur Barbiturates Screen Ur Amphetamines Screen U Benzodiazepines Scrn Urine Cocaine Screen U Cannabinoids Screen Serum Alcohol - Imaging Impressions Carotid Doppler Study 08/03/18 00:00 CONCLUSION: 1. Right Internal Carotid Artery: Moderate atherosclerotic plaque with elevated PSV ratio of 2.9 which could indicate hemodynamically significant stenosis. This would be better evaluated with CTA carotids. 2. Left Internal Carotid Artery: Moderate plaque without significant stenosis. Head CT 08/03/18 13:37 CONCLUSION: 1. Microvascular ischemic demyelinative change. No acute intracranial abnormality identified. Assessment and Plan - Assessment (1) Encephalopathy, toxic Code(s): G92 - Toxic encephalopathy Status: Acute (2) Atrial fibrillation with slow ventricular response Code(s): I48.91 - Unspecified atrial fibrillation Status: Acute - Plan Mr. Limon is a pleasant 73-year-old male with a history of congestive heart failure, CAD, diabetes mellitus, anemia, hypertension and atrial fibrillation who presented to the emergency department on 08/03/2018 due to altered mental status and fall. Patient reports that he fell from bed and when he got up he injured his face. He denied any chest pain, shortness of breath, dizziness or lightheadedness. He has been on pain medication and was given Narcan due to miotic pupils. He had suboptimal response to Narcan. Toxic encephalopathy -Possibly due to opioid use. Currently resolved. Patient is alert oriented 3 coherent. -He clearly states that he does not want to go to SNF. He wants to go home. Atrial fibrillation -He takes metoprolol succinate 50 mg daily at home. His heart rate went down to 30. -Due to heart failure as well as atrial fibrillation, he will need some beta- christelle. -We will reduce beta christelle to metoprolol succinate 25 mg daily. -He currently is on Warfarin. Choosing a different anti-coagulation med maybe better for him. Will d/w family. -I would recommend Apixaban 5mg BID. Acute on chronic congestive heart failure systolic Ischemic cardiomyopathy with ejection fraction 30-35% Hypertension -We started patient on torsemide 10 mg twice daily -Continue amiodarone 200 mg nightly, atorvastatin 10 mg daily, isosorbide mononitrate 30 mg nightly -Continue nifedipine 30 mg daily. Possible right internal carotid artery stenosis -Carotid ultrasound indicated potentially hemodynamically significant stenosis. -We will obtain CTA. If positive, will consult vascular surgery. Full code. Warfarin. INR 1.8 on 08/03/2018.
[2018-08-04] MEDS ORDERED: Torsemide 20 MG Tablet PO ONE (13:15)
--- NOTE | 2018-08-04 13:25 | ECHRPT ---
Indication: Atrial Fib and Flutter CONCLUSIONS Mildly dilated left ventricle. Wall thickness is measured at the upper limits of normal. The left ventricular systolic function is severely reduced with an estimated ejection fraction in th e range of 30-35%. The left atrial size is severely dilated. Mild mitral valve regurgitation. Aortic valve sclerosis is present. Trace aortic valve regurgitation. There is trace tricuspid valve regurgitation. The estimated pulmonary arterial pressure is 35 mmHg. The inferior vena cava is dilated. Estimated RAP 15mmHg. BP: / HR: Rhythm: MEASUREMENTS (Male / Female) Normal Values Technical Quality: 2D ECHO LV Diastolic Diameter PLAX 5.5 cm 4.2 - 5.9 / 3.9 - 5.3 cm LV Systolic Diameter PLAX 4.7 cm IVS Diastolic Thickness 1.1 cm 0.6 - 1.0 / 0.6 - 0.9 cm LVPW Diastolic Thickness 1.1 cm 0.6 - 1.0 / 0.6 - 0.9 cm LV Relative Wall Thickness 0.4 RV Internal Dim ED PLAX 4.0 cm LVOT Diameter 2.2 cm Aortic Root Diameter 2.9 cm LA Systolic Diameter LX 5.6 cm 3.0 - 4.0 / 2.7 - 3.8 cm LV Ejection Fraction MOD 4C 34.1 % LV Ejection Fraction 4C AL 36.9 % M-MODE AV Cusp Separation MM 2.1 cm DOPPLER AV Peak Velocity 103.0 cm/s AV Peak Gradient 4.2 mmHg LVOT Peak Velocity 79.5 cm/s LVOT Peak Gradient 2.5 mmHg AV Area Cont Eq pk 2.9 cm Mitral E Point Velocity 117.0 cm/s Mitral A Point Velocity 41.0 cm/s Mitral E to A Ratio 2.9 LV E' Lateral Velocity 9.1 cm/s Mitral E to LV E' Lateral Ratio 12.9 LV E' Septal Velocity 4.1 cm/s Mitral E to LV E' Septal Ratio 28.7 TR Peak Velocity 250.0 cm/s TR Peak Gradient 25.0 mmHg Right Atrial Pressure 10.0 mmHg Pulmonary Artery Systolic Pressu 35.0 mmHg Right Ventricular Systolic Press 35.0 mmHg PV Peak Velocity 105.0 cm/s PV Peak Gradient 4.4 mmHg FINDINGS LEFT VENTRICLE Mildly dilated left ventricle. Wall thickness is measured at the upper limits of normal. The left ventricular systolic function is severely reduced with an estimated ejection fraction in th e range of 30-35%. RIGHT VENTRICLE Normal right ventricular size and systolic function. LEFT ATRIUM The left atrial size is severely dilated. RIGHT ATRIUM The right atrial size is normal. ATRIAL SEPTUM Normal atrial septal thickness without atrial level shunting by limited color doppler interrogation. AORTA The aortic root and proximal ascending aorta are normal in size on limited imaging. MITRAL VALVE Mild mitral valve regurgitation. AORTIC VALVE Trileaflet aortic valve. Aortic valve sclerosis is present. Trace aortic valve regurgitation. TRICUSPID VALVE There is trace tricuspid valve regurgitation. The estimated pulmonary arterial pressure is 35 mmHg. PULMONARY VALVE No pulmonary valve regurgitation or stenosis. VESSELS The inferior vena cava is dilated. Estimated RAP 15mmHg. PERICARDIUM No pericardial effusion. Remigio Torres (Electronically Signed) Final Date:04 August 2018 13:23
[2018-08-04] MEDS: Enoxaparin Inj 40 MG/0.4 ML Syringe SQ SCH (17:38)
--- NOTE | 2018-08-04 19:07 | ECG ---
Date Performed: 08/03/2018 Time Performed: 13:27:55 PTAGE: 73 years EKG: ATRIAL FIBRILLATION WITH SLOW VENTRICULAR RESPONSE INCOMPLETE RIGHT BUNDLE BRANCH BLOCK ST DEVIATION AND MODERATE T-WAVE ABNORMALITY, CONSIDER LATERAL ISCHEMIA ABNORMAL ECG INTERPRETATION BASE D ON A DEFAULT AGE OF 40 YEARS NO PREVIOUS TRACING DOCTOR: Mega Duque Interpretating Date/Time 08/04/2018 19:05:12
[2018-08-04] MEDS ORDERED: cloNIDine Susp (NICU) 20 MCG/ML 30 ML Bottle PO SCH (21:00)
[2018-08-04] MEDS: Gabapentin 300 MG Capsule PO SCH (21:43)
[2018-08-04] MEDS: Amiodarone 200 MG Tablet PO SCH (21:43)
[2018-08-04] MEDS: Isosorbide Mononitrate 30 MG ER 24HR Tablet (Imdur) PO SCH (21:43)
[2018-08-05] MEDS: Senna/Docusate Sodium 8.6/50 MG Tablet PO SCH ×2 (08:37→20:13)
[2018-08-05] MEDS ORDERED: Acetaminophen 500 MG Tablet PO PRN (10:01)
--- NOTE | 2018-08-05 10:02 | P.PN ---
Subjective Interval history: Follow-up for fall, cardiomyopathy. Patient is currently doing well. Denies any chest pain, shortness of breath, fever or chills. He states that he was able to lay on his back in bed after a long time and not feel short of breath. Physical Exam Vital signs: Vital Signs 08/04/18 11:00 08/04/18 11:10 08/04/18 11:22 Temperature Pulse Rate 56 L 59 L Respiratory Rate Blood Pressure 170/83 H Pulse Oximetry 95 95 08/04/18 12:00 08/04/18 13:00 08/04/18 14:00 Temperature Pulse Rate 48 L 56 L 66 Respiratory Rate Blood Pressure Pulse Oximetry 08/04/18 14:05 08/04/18 15:00 08/04/18 16:00 Temperature 98 F Pulse Rate 65 50 L 56 L Respiratory Rate 17 Blood Pressure 164/83 H Pulse Oximetry 96 08/04/18 17:00 08/04/18 17:36 08/04/18 18:00 Temperature 97.2 F L Pulse Rate 62 62 72 Respiratory Rate 17 Blood Pressure 157/75 H Pulse Oximetry 98 08/04/18 19:00 08/04/18 19:40 08/04/18 20:00 Temperature 98.0 F Pulse Rate 66 68 Respiratory Rate 18 Blood Pressure 134/67 Pulse Oximetry 94 L 94 L 08/04/18 21:00 08/04/18 22:00 08/04/18 23:00 Temperature Pulse Rate 90 102 H 70 Respiratory Rate Blood Pressure Pulse Oximetry 08/05/18 00:00 08/05/18 01:00 08/05/18 02:00 Temperature 98.0 F Pulse Rate 97 H 74 52 L Respiratory Rate 16 Blood Pressure 127/63 Pulse Oximetry 97 08/05/18 04:00 08/05/18 05:00 08/05/18 06:00 Temperature Pulse Rate 53 L 57 L 59 L Respiratory Rate 16 Blood Pressure Pulse Oximetry 08/05/18 07:00 08/05/18 08:00 08/05/18 09:00 Temperature 98.5 F Pulse Rate 57 L 74 83 Respiratory Rate 18 Blood Pressure 147/52 H Pulse Oximetry 98 Intake & Output 08/04/18 08/05/18 08/05/18 18:59 06:59 18:59 Intake Total 1080 / 1080 Output Total 900 / 900 Balance 180 / 180 Weight 82.1 kg Intake: IV 600 / 600 NS Inj 1,000 ML @ 100 mls/hr IV 600 / 600 .CONT .Q10H [facility]HA[facility] Rx#:[id number] Oral 480 / 480 Output: Urine 900 / 900 Other: Date of Last Bowel Movement 08/03/18 08/03/18 08/03/18 Narrative: GENERAL: Alert, Oriented x 3, NAD. SKIN: Warm and dry. Multiple minor abrasions and one 5-6 cm long skin laceration on forehead. HEAD: Normocephalic. EYES: No scleral icterus. No injection or drainage. NECK: Supple, trachea midline. No JVD or lymphadenopathy. CARDIOVASCULAR: Regular rate and rhythm without murmurs, gallops, or rubs. RESPIRATORY: Breath sounds equal bilaterally. No accessory muscle use. GASTROINTESTINAL: Abdomen soft, non-tender, nondistended. MUSCULOSKELETAL: No cyanosis, or edema. BACK: Nontender without obvious deformity. No CVA tenderness. Results - Labs CBC & Chem 7: 08/04/18 06:02 08/04/18 06:02 Laboratory Results - last 24 hr 08/04/18 08/04/18 14:56 19:05 POC Glucose 99 158 H - Imaging Carotid Doppler Study 08/03/18 00:00 CONCLUSION: 1. Right Internal Carotid Artery: Moderate atherosclerotic plaque with elevated PSV ratio of 2.9 which could indicate hemodynamically significant stenosis. This would be better evaluated with CTA carotids. 2. Left Internal Carotid Artery: Moderate plaque without significant stenosis. Head CT 08/03/18 13:37 CONCLUSION: 1. Microvascular ischemic demyelinative change. No acute intracranial abnormality identified. Assessment and Plan - Assessment (1) Encephalopathy, toxic Code(s): G92 - Toxic encephalopathy Status: Acute (2) Atrial fibrillation with slow ventricular response Code(s): I48.91 - Unspecified atrial fibrillation Status: Acute - Plan Mr. Limon is a pleasant 73-year-old male with a history of congestive heart failure, CAD, diabetes mellitus, anemia, hypertension and atrial fibrillation who presented to the emergency department on 08/03/2018 due to altered mental status and fall. Patient reports that he fell from bed and when he got up he injured his face. He denied any chest pain, shortness of breath, dizziness or lightheadedness. He has been on pain medication and was given Narcan due to miotic pupils. He had suboptimal response to Narcan. Toxic encephalopathy -Possibly due to opioid use. Currently resolved. Patient is alert oriented 3 coherent. -He clearly states that he does not want to go to SNF. He wants to go home. Atrial fibrillation -He takes metoprolol succinate 50 mg daily at home. His heart rate went down to 30. -Due to heart failure as well as atrial fibrillation, he will need some beta- christelle. -We will reduce beta christelle to metoprolol succinate 25 mg daily. -He currently is on Warfarin. Choosing a different anti-coagulation med maybe better for him. Will d/w family. -I would recommend Apixaban 5mg BID. Acute on chronic congestive heart failure systolic Ischemic cardiomyopathy with ejection fraction 30-35% Hypertension -We started patient on torsemide 10 mg twice daily -Continue amiodarone 200 mg nightly, atorvastatin 10 mg daily, isosorbide mononitrate 30 mg nightly -Continue nifedipine 30 mg daily. Possible right internal carotid artery stenosis -Carotid ultrasound indicated potentially hemodynamically significant stenosis. -We will obtain CTA. If positive, will consult vascular surgery. Full code. Warfarin. INR 1.8 on 08/03/2018. Will check PT/INR today. Discharge plan: Probable discharge in the AM on 08/06/2018.
[2018-08-05 11:54] LABS: INR 1.8 Ratio; Prothrombin Time 18.7 sec (9.8-11.6)
--- NOTE | 2018-08-05 17:27 | CT ---
EXAM DATE: 08/05/2018 5:00 PM EDT AGE/SEX: 73 years / Male INDICATIONS: Occlusion CLINICAL DATA: This is the patient's initial encounter. Patient reports that signs and symptoms have been present for 1 day and indicates a pain score of 0/10. MEDICAL/SURGICAL HISTORY: Hypertension. Congestive heart failure. Diabetes. Atrial fib, Gout No ne. RADIATION DOSE: 10.79 CTDI (mGy) COMPARISON: No prior exams available for comparison. TECHNIQUE: Volumetric scanning was performed using a multirow detector CT scanner during bolus infus ion of 120ML ml Omnipaque 350 (iohexol) nonionic water-soluble contrast as a single exam dose. The data was postprocessed with a variety of visualization algorithms including full-volume maximum inte nsity projection, multiplanar sliding thin-slab reformation, curved-planar reformation, and surface-r endering techniques. Using automated exposure control and adjustment of the mA and/or kV according t o patient size, radiation dose was kept as low as reasonably achievable to obtain optimal diagnostic quality images. DICOM format image data is available electronically for review and comparison. Percent stenosis is calculated using the diameter of the stenotic region over the diameter of the nor mal distal internal carotid artery. FINDINGS: Aortic Arch: There is a three-vessel origin of the great vessels from the aorta. No evidence of ost ial narrowing Right Carotid: The common carotid artery is intact. Calcified and noncalcified plaque is seen at the carotid bulb and proximal internal carotid artery. There is moderate to high-grade stenosis of the p roximal internal carotid artery 1.2 cm from its origin. This measures approximately 70% moderate grad e stenosis the proximal external carotid artery on the right. Left Carotid: The common carotid artery is intact. Calcified plaque at the left carotid bulb. Mild s tenosis measuring approximately 30%. Vertebrals: The vertebral arteries have a symmetric diameter. No stenotic lesions are seen. CONCLUSION: 1. Moderate to high-grade stenosis of the proximal right internal carotid artery measuring approxima te 70%. 2. No significant stenosis on the left. Electronically signed by: Raúl Pierce MD 08/05/2018 5:25 PM EDT
[2018-08-05] MEDS: Enoxaparin Inj 40 MG/0.4 ML Syringe SQ SCH (17:54)
[2018-08-05] MEDS: Isosorbide Mononitrate 30 MG ER 24HR Tablet (Imdur) PO SCH (20:14)
[2018-08-05] MEDS: Gabapentin 300 MG Capsule PO SCH (20:15)
[2018-08-05] MEDS: Amiodarone 200 MG Tablet PO SCH (20:15)
[2018-08-06 00:24] VITALS: RESP 18
[2018-08-06 07:34] VITALS: BP 146/82; TEMP 98.2
[2018-08-06] MEDS: Senna/Docusate Sodium 8.6/50 MG Tablet PO SCH (08:10)
--- NOTE | 2018-08-06 09:05 | P.PN ---
Subjective Interval history: Follow-up for fall, cardiomyopathy. Mr. Limon is doing well. Sitting in his chair. No acute concerns. Denies any CP, SOB, fever, chills. Physical Exam Vital signs: Vital Signs 08/05/18 11:00 08/05/18 11:26 08/05/18 12:00 Temperature 98.2 F Pulse Rate 70 72 Respiratory Rate 18 Blood Pressure 149/86 H Pulse Oximetry 98 100 08/05/18 13:00 08/05/18 14:00 08/05/18 15:00 Temperature Pulse Rate 73 75 72 Respiratory Rate Blood Pressure Pulse Oximetry 08/05/18 15:18 08/05/18 16:00 08/05/18 16:50 Temperature 98.0 F Pulse Rate 69 90 Respiratory Rate 18 Blood Pressure 149/66 H Pulse Oximetry 97 97 08/05/18 17:00 08/05/18 18:00 08/05/18 19:00 Temperature Pulse Rate 117 H 106 H 99 H Respiratory Rate Blood Pressure Pulse Oximetry 08/05/18 20:00 08/05/18 21:00 08/05/18 22:00 Temperature 98.2 F Pulse Rate 73 78 89 Respiratory Rate 20 Blood Pressure 163/74 H Pulse Oximetry 99 08/05/18 23:00 08/06/18 00:00 08/06/18 01:00 Temperature 98.0 F Pulse Rate 89 94 H 92 H Respiratory Rate 18 Blood Pressure 162/76 H Pulse Oximetry 96 08/06/18 02:00 08/06/18 03:00 08/06/18 04:00 Temperature Pulse Rate 86 90 91 H Respiratory Rate Blood Pressure Pulse Oximetry 08/06/18 05:00 08/06/18 05:37 08/06/18 07:00 Temperature Pulse Rate 100 H 98 H 88 Respiratory Rate Blood Pressure Pulse Oximetry 08/06/18 07:30 08/06/18 08:00 08/06/18 08:38 Temperature 98.2 F Pulse Rate 69 100 H Respiratory Rate 18 Blood Pressure 146/82 H Pulse Oximetry 96 96 Intake & Output 08/05/18 08/06/18 08/06/18 18:59 06:59 18:59 Intake Total 1000 / 1000 800 / 800 Balance 1000 / 1000 800 / 800 Weight 82 kg Intake: Oral 1000 / 1000 800 / 800 Other: # Voids 4 5 Date of Last Bowel Movement 08/03/18 08/03/18 08/03/18 Results - Labs CBC & Chem 7: 08/04/18 06:02 08/04/18 06:02 Laboratory Results - last 24 hr 08/05/18 11:37 PT 18.7 H INR 1.8 - Imaging Impressions Neck CTA 08/05/18 00:00 CONCLUSION: 1. Moderate to high-grade stenosis of the proximal right internal carotid artery measuring approximate 70%. 2. No significant stenosis on the left. Assessment and Plan - Assessment (1) Encephalopathy, toxic Code(s): G92 - Toxic encephalopathy Status: Acute (2) Atrial fibrillation with slow ventricular response Code(s): I48.91 - Unspecified atrial fibrillation Status: Acute - Plan Mr. Limon is a pleasant 73-year-old male with a history of congestive heart failure, CAD, diabetes mellitus, anemia, hypertension and atrial fibrillation who presented to the emergency department on 08/03/2018 due to altered mental status and fall. Patient reports that he fell from bed and when he got up he injured his face. He denied any chest pain, shortness of breath, dizziness or lightheadedness. He has been on pain medication and was given Narcan due to miotic pupils. He had suboptimal response to Narcan. Toxic encephalopathy -Possibly due to opioid use. Currently resolved. Patient is alert oriented 3 coherent. -He clearly states that he does not want to go to SNF. He wants to go home. Atrial fibrillation -He takes metoprolol succinate 50 mg daily at home. His heart rate went down to 30. -Due to heart failure as well as atrial fibrillation, he will need some beta- christelle. -We will reduce beta christelle to metoprolol succinate 25 mg daily. -He currently is on Warfarin. Choosing a different anti-coagulation med maybe better for him. Will d/w family. -I would recommend Apixaban 5mg BID. Acute on chronic congestive heart failure systolic Ischemic cardiomyopathy with ejection fraction 30-35% Hypertension -We started patient on torsemide 10 mg twice daily -Continue amiodarone 200 mg nightly, atorvastatin 10 mg daily, isosorbide mononitrate 30 mg nightly -Continue nifedipine 30 mg daily. Possible right internal carotid artery stenosis -Carotid ultrasound indicated potentially hemodynamically significant stenosis. -Will consult Vascular surgery. Full code. Warfarin. INR 1.8 on 08/03/2018. Will check PT/INR today. Discharge plan: Probable discharge in the AM on 08/06/2018.
--- NOTE | 2018-08-06 10:19 | P.CONVS ---
History of Present Illness Service: Vascular Surgery Consult date: 08/06/18 Requesting Physician: Be Hunt Reason for Consult: carotid stenosis Primary Care Provider: Anjelica Garcia MD Family Provider: Anjelica Garcia MD Chief Complaint: altered mental status History of Present Illness: 73 yo male who fell out of bed then again trying to get in bed. Has full recall of event. Known carotid stenosis for 10 years according to him. No CVA , no stroke. On coumadin for a-fib and statin Review of Systems Constitutional: Reports body ache(s), Denies chills, Denies fatigue Eyes: Denies blind spots Cardiovascular: Reports irregular heart rhythm Neurologic: Reports frequent falls, Denies loss of vision PMFSH - History History Provided By: Patient - Medical History Medical History: Medical History (Last Reviewed 08/06/18 @ 10:15 by Mario Lpoez MD) Afib CAD (coronary artery disease) CHF (congestive heart failure) Diabetes Gout HLD (hyperlipidemia) Hypertension - Tobacco History Second Hand Smoke Exposure: Yes Tobacco Use In Past 30 Days: Yes Smoking Status: Heavy tobacco smoker Tobacco Type: Cigarettes - Alcohol History How Often Do You Have a Drink Containing Alcohol: Never - Substance Use History Substance History: No History of Abuse - Travel History Recent Travel in the [place] Within the Last 8 Weeks: No Recent Travel Out of the Country Within the Last 8 Weeks: No - Immunization History Tetanus Immunization: Unsure Hx Influenza Vaccine This Season: Yes Medications and Allergies Active Medications: Active Medications Acetaminophen (Tylenol) 500 mg PO Q4H PRN PRN Reason: Headache, fever, pain 1-4 Hydrocodone Bitart/Acetaminophen ([place] 5/325) 1 tab PO Q6H PRN PRN Reason: Pain 5-10 Last Admin: 08/05/18 20:13 Dose: 1 tab Al Hydroxide/Mg Hydroxide (Milk Of Magnesia Liq) 30 ml PO Q12H PRN PRN Reason: Mild Constipation Amiodarone HCl (Cordarone) 200 mg PO HS GHAZAL Last Admin: 08/05/18 20:15 Dose: 200 mg Atorvastatin Calcium (Lipitor) 10 mg PO DAILY GHAZAL Last Admin: 08/06/18 08:09 Dose: 10 mg Bisacodyl (Dulcolax Supp) 10 mg RECTAL DAILY PRN PRN Reason: SEVERE CONSITIPATION Clonidine HCl (Catapres) 0.1 mg PO Q6H PRN PRN Reason: for systolic BP > 170 Last Admin: 08/04/18 11:15 Dose: 0.1 mg Enoxaparin Sodium (Lovenox Inj) 40 mg SQ Q24H [facility] [place] Last Admin: 08/05/18 17:54 Dose: 40 mg Gabapentin (Neurontin) 300 mg PO HS [facility] [place] Last Admin: 08/05/18 20:15 Dose: 300 mg Isosorbide Mononitrate (Imdur) 30 mg PO HS [facility] [place] Last Admin: 08/05/18 20:14 Dose: 30 mg Lactulose (Lactulose Liq) 30 ml PO DAILY PRN PRN Reason: SEVERE CONSITIPATION Metoprolol Succinate (Toprol Xl) 25 mg PO DAILY [facility] [place] Last Admin: 08/06/18 08:10 Dose: 25 mg Nifedipine (Procardia Xl) 30 mg PO DAILY [facility] [place] Last Admin: 08/06/18 08:09 Dose: 30 mg Ondansetron HCl (Zofran Inj) 4 mg IV.PUSH Q6H PRN PRN Reason: NAUSEA OR VOMITING Pantoprazole Sodium (Protonix) 40 mg PO DAILY [facility] [place] Last Admin: 08/06/18 08:09 Dose: 40 mg Senna/Docusate Sodium (Toshia-Colace) 1 tab PO BID [facility] [place] Last Admin: 08/06/18 08:10 Dose: Not Given Sennosides (Senokot) 17.2 mg PO Q12H PRN PRN Reason: Moderate Constipation Torsemide (Demadex) 10 mg PO BID@0900,1800 [facility] [place] Last Admin: 08/06/18 08:09 Dose: 10 mg Allergies Allergy/AdvReac Type Severity Reaction Status Date / Time metoclopramide AdvReac Severe Confusion Verified 08/03/18 13:30 ranitidine AdvReac Severe Confusion Verified 08/03/18 13:30 Home Medications Medication Instructions Recorded Confirmed Type allopurinol 300 mg PO DAILY 08/03/18 08/03/18 History amiodarone 200 mg PO HS 08/03/18 08/03/18 History atorvastatin [Lipitor] 10 mg PO DAILY 08/03/18 08/03/18 History clonidine HCl 0.1 mg PO BID 08/03/18 08/03/18 History esomeprazole magnesium [Nexium] 40 mg PO DAILY 08/03/18 08/03/18 History furosemide 80 mg PO DAILY 08/03/18 08/03/18 History gabapentin 300 mg PO HS 08/03/18 08/03/18 History isosorbide mononitrate 30 mg PO HS 08/03/18 08/03/18 History metoprolol succinate 50 mg PO DAILY 08/03/18 08/03/18 History nifedipine 30 mg PO HS 08/03/18 08/03/18 History potassium chloride [Klor-Con] 20 meq PO DAILY 08/03/18 08/03/18 History warfarin 3 mg PO HS 08/03/18 08/03/18 History Physical Exam Vital Signs / I&O: Vital Signs 08/05/18 11:00 08/05/18 11:26 08/05/18 12:00 Temperature 98.2 F Pulse Rate 70 72 Respiratory Rate 18 Blood Pressure 149/86 H Pulse Oximetry 98 100 08/05/18 13:00 08/05/18 14:00 08/05/18 15:00 Temperature Pulse Rate 73 75 72 Respiratory Rate Blood Pressure Pulse Oximetry 08/05/18 15:18 08/05/18 16:00 08/05/18 16:50 Temperature 98.0 F Pulse Rate 69 90 Respiratory Rate 18 Blood Pressure 149/66 H Pulse Oximetry 97 97 08/05/18 17:00 08/05/18 18:00 08/05/18 19:00 Temperature Pulse Rate 117 H 106 H 99 H Respiratory Rate Blood Pressure Pulse Oximetry 08/05/18 20:00 08/05/18 21:00 08/05/18 22:00 Temperature 98.2 F Pulse Rate 73 78 89 Respiratory Rate 20 Blood Pressure 163/74 H Pulse Oximetry 99 08/05/18 23:00 08/06/18 00:00 08/06/18 01:00 Temperature 98.0 F Pulse Rate 89 94 H 92 H Respiratory Rate 18 Blood Pressure 162/76 H Pulse Oximetry 96 08/06/18 02:00 08/06/18 03:00 08/06/18 04:00 Temperature Pulse Rate 86 90 91 H Respiratory Rate Blood Pressure Pulse Oximetry 08/06/18 05:00 08/06/18 05:37 08/06/18 07:00 Temperature Pulse Rate 100 H 98 H 88 Respiratory Rate Blood Pressure Pulse Oximetry 08/06/18 07:30 08/06/18 08:00 08/06/18 08:38 Temperature 98.2 F Pulse Rate 69 100 H Respiratory Rate 18 Blood Pressure 146/82 H Pulse Oximetry 96 96 08/06/18 09:00 Temperature Pulse Rate 83 Respiratory Rate Blood Pressure Pulse Oximetry Intake & Output 08/05/18 08/06/18 08/06/18 18:59 06:59 18:59 Intake Total 1000 / 1000 800 / 800 Balance 1000 / 1000 800 / 800 Weight 82 kg Intake: Oral 1000 / 1000 800 / 800 Other: # Voids 4 5 Date of Last Bowel Movement 08/03/18 08/03/18 08/03/18 Neuro: alert, sitting in chair, no distress WU HEENT: multiple superficial appearing lacerations on face Neck: trachea midline Heart: irreg rate Lungs: nonlabored Vascular: palpable UE pulses Laboratory Results - last 24 hr 08/05/18 11:37 PT 18.7 H INR 1.8 Impressions Neck CTA 08/05/18 00:00 CONCLUSION: 1. Moderate to high-grade stenosis of the proximal right internal carotid artery measuring approximate 70%. 2. No significant stenosis on the left. Assessment and Plan - Assessment (1) Carotid stenosis, asymptomatic Code(s): I65.29 - Occlusion and stenosis of unspecified carotid artery Status : Acute - Plan Asymptomatic moderate carotid stenosis R ICA by my review of the CTA and discussing with patient. Quoting ACAS, he has a 2% annual stroke rate, which could be reduced to 1% with successful CEA. With his comorbidities, I favor medical treatment of very stable CVOD. He agrees with plan. Will arrange f/u 1m in my clinic. He has my phone numbers and certainly will call if he has any stroke, TIA, or potential amaurosis symptoms. My office will call Wednesday morning to arrange f/ u appointment. continue statin, coumadin (a fib) and ideally, ASA (81) daily. Mario Lopez MD FACS RPVI preboarder [facility] - Heart and Vascular Surgery at [facility] [phone]
--- NOTE | 2018-08-06 10:54 | P.DCO ---
- Physical Therapy Order: Evaluate and treat, Improve ambulation, Strength and gait training - Home Health Nursing Order: Medical education, Oxygen administration education, Medication education- adverse effect, Nursing assessment with vital signs - Certification I have seen patient Matthew Limon on 08/06/18. My clinical findings support the need for the requested home health care services because: Deconditioned with increased weakness, Limited ability to care for self, Need for psychosocial assistance, Impaired cognition/judgement, High risk of falls, Infection with risk of complications I certify that my clinical findings support that this patient is homebound because: Unsteady gait/balance, Unsafe to leave home unassisted, Need for psychosocial assistance, Unable to use public transportation, Poor cardiac reserve
[2018-08-06 11:04] VITALS: PULSE 79
[2018-08-06 11:38] VITALS: O2SAT 98
--- NOTE | 2018-08-06 12:15 | XR ---
EXAM DATE: 08/06/2018 12:12 PM EDT AGE/SEX: 73 years / Male INDICATIONS: Patients family request. Encephalopathy. AFIB. SVR. CLINICAL DATA: This is the patient's initial encounter. Patient reports that signs and symptoms have been present for 4 - 6 days and indicates a pain score of 0/10. MEDICAL/SURGICAL HISTORY: . Cardiovascular disease . Coronary artery stent COMPARISON: [facility] [place], CHEST SINGLE AP, 12/27/2010. . FINDINGS: A single AP view of the chest demonstrates the lungs to be symmetrically aerated without evidence of mass, infiltrate or effusion. Cardiomegaly unchanged. No pulmonary vascular engorgement observed. Oss eous structures are intact. CONCLUSION: Cardiomegaly without pulmonary vascular engorgement. Electronically signed by: Carmine Schaefer MD 08/06/2018 12:13 PM EDT
--- NOTE | 2018-08-06 17:16 | MB ---
cc: Wang Wells DO DATE: 08/05/2018 REASON FOR CONSULTATION: Atrial fibrillation with slow ventricular response. HISTORY OF PRESENT ILLNESS: Matthew Limon is a pleasant 73-year-old male who sees my partner, Dr. Gal Smith, in the office and presented to [facility] Emergency Room due to altered mental status after a fall. Apparently, a friend of his left the house this morning to go to a and her son was there with him. She got a call that he had fallen and when she arrived, she found him altered, sedated, and drowsy , visibly bruising and bleeding. Apparently, he has been on pain medications in the past, but nothing recently. On arrival, he was found to be somewhat altered, but in seeing him today, he appears to be alert, awake and oriented x3. He states that he watches TV in bed with his dogs and as it is a small bed, he slides over and puts part of his arm and head on a nightstand. He slid off of this and cut himself on the nightstand. She got a call that he had fallen and was on the ground altered, sedated, and drowsy. Apparently, the patient is on Lortab as needed for chronic pain and there was a question of him taking his medications, although his UDS was negative for opiates. In seeing him, he is currently hemodynamically stable, and alert, awake and oriented. He states that he watches TV in a small bed with his dog on one side. Because of this, he lies his arm and head on a nightstand and slid off the bed and cut himself on the nightstand as he fell out of bed. Also, on arrival, he was found to be in atrial fibrillation with slow ventricular response with a heart rate in the 40s. He states that Dr. Smith kept his heart rate low as he has had atrial fibrillation with rapid ventricular response before. Since this morning, his heart rate has been mostly in the 60s-70s. He has also had a few wide complex tachycardia, but these appear to be atrial fibrillation with aberrancy. PAST MEDICAL HISTORY: 1. Atrial fibrillation. 2. Coronary artery disease. 3. Congestive heart failure. 4. Diabetes. 5. Gout. 6. Hyperlipidemia. 7. Hypertension. 8. Peripheral artery disease. PAST SURGICAL HISTORY: 1. Cardiac catheterization (12/19/2004): Left main 20%. LAD is totally occluded at its origin. Ramus is diffusely diseased including up to 80% at the ostium and 70% in the mid portion. Left circumflex is relatively small with 30%-40% ostial, 60%-80% proximal and . Obtuse marginal branch appears to have possible severe disease. RCA is totally occluded with no flow. This appears to be at the proximal edge of a previously placed stent. There is another stent evident in the mid RCA. MEADOWS to LAD is widely patent and the distal anastomosis site has approximately 50% stenosis. The patient underwent PCI of the RCA and during this, balloon angioplasty was done. An hour later, the patient developed severe bradycardia and recurrent ST elevations and he was taken back to the lab. RCA was found to be occluded again and AngioJet thrombectomy was done. Apparently 30 minutes later, the patient developed hypotension and bradycardia again and once again AngioJet thrombectomy was done. At that time, he underwent PCI with a heparin-coated Velocity stent (3.5 x 18) in the mid RCA. A second heparin-coated Velocity stent (3.5 x 18) was positioned proximally. 2. Previous CABG (unknown date). 3. Exploratory laparotomy with right hemicolectomy (12/18/2004). 4. Per the daughter, peripheral stenting was done of unknown vessels. 5. History of aortic valve replacement. ALLERGIES: 1. METOCLOPRAMIDE. 2. . MEDICATIONS: 1. Clonidine 0.1 mg b.i.d. 2. Toprol-XL 50 mg daily. 3. Lasix 80 mg daily. 4. Imdur 30 mg every night. 5. 3 mg every night. 6. Gabapentin 300 mg every night. 7. Allopurinol 300 mg daily. 8. Lipitor 10 mg daily. 9. 10. Amiodarone 200 mg every night. FAMILY HISTORY: Denies sudden SOCIAL HISTORY: The patient continues to smoke daily. Denies alcohol or drug abuse. REVIEW OF SYSTEMS: Fourteen systems were reviewed including osteopathic, clinical positives and negatives above, otherwise negative. PHYSICAL EXAMINATION: VITAL SIGNS: Temperature 98.5, heart rate 74, blood pressure 147/52, respirations 18, pulse oximetry 98% on room air. GENERAL: The patient appears . HEENT: Extraocular muscles intact. Minor abrasions noted across the forehead and face. Mucous membranes moist. NECK: Supple. No JVD at 45 degrees. No carotid bruits heard bilaterally. Carotid upstroke is brisk in nature. HEART: Irregularly irregular. Positive first and second heart sounds with no noted murmurs, gallops, or rubs. LUNGS: Clear to auscultation bilaterally. No wheezes, rales or rhonchi. ABDOMEN: Soft, not distended. No organomegaly noted. EXTREMITIES: Show no clubbing, cyanosis, or edema. Distal pulses intact bilaterally. NEUROLOGIC: No focal deficits. SKIN: Warm, dry, and intact. OSTEOPATHIC: No kyphoscoliosis or lordosis. LABORATORY DATA: Hemoglobin 11.9, hematocrit 37, 825. Potassium 4.0, BUN 25, creatinine 1.3. Troponin 0.03. Electrocardiogram (08/03/2018 at 1327): Atrial fibrillation with slow ventricular response, incomplete right bundle branch block, nonspecific ST-T wave changes throughout with no significant difference from 2010. ASSESSMENT: 1. Toxic encephalopathy, possibly due to opioid use. 2. Atrial fibrillation with slow ventricular response, apparently with controlled ventricular response. 3. Anticoagulation with Coumadin. 4. Acute on chronic congestive heart failure. 5. Hypertension. 6. Carotid stenosis. 7. Coronary artery disease. 8. Peripheral artery disease. RECOMMENDATIONS: 1. Mr. Limon presented with what appears to be per him, a mechanical fall while lying in bed and falling off the bed into the nightstand. 2. On arrival, there appeared to be encephalopathy and this might be due to opioid use, although his UDS was negative for opioids. 3. He was also noted to be in atrial fibrillation with slow ventricular response. It does not appear at this time that he had a syncopal episode, but more slipped and fell out of his bed. He has been held off his Toprol-XL, but I believe it is okay to restart him on 25 mg daily and watch his heart rates on telemetry. We will also continue him on his amiodarone. 4. Carotid ultrasound was done and showed possible stenosis. I discussed this with the primary team and they plan to check a CTA of his carotids for further recommendations, although once again, I doubt that this was the possible cause of this episode. 5. An echocardiogram has been done showing an ejection fraction of 30%-35%. He should continue on beta-christelle therapy if possible myopathy. 6. Mr. Limon has been on Coumadin for his atrial fibrillation. Primary team plans on discussing with the patient and his daughter about consideration of a NOAC. 7. The patient's daughter had written a note about the patient's legs being somewhat cold and having history of peripheral stents. At this time, he has no ischemia. I have asked that he follow up in the outpatient office with Dr. Smith and at that time, studies could be done to further evaluate this and he could follow up with myself for further considerations of workup versus peripheral angiogram for peripheral artery disease. Thank you for allowing me to see Matthew Limon. If there are any questions, please do not hesitate to call. DO JAIRON Serrano/cyn/nayana , 12:05 AM , 12:27 AM
--- NOTE | 2018-08-06 19:21 | P.DS ---
Date of admission: 08/03/18 15:30 Primary care physician: Anjelica Garcia MD Brief History from admission: 73-year-old man presents emerged department altered mental status and falls. According to the friend who is with him was known him for several decades, she left the house this morning to go to a doctor's appointment. He had been on pain medicine in the past but had not been on anything recently. His son was there with him. She got a call that he had fallen when she went there found him altered, sedated, still drowsy, and with bruises and bleeding from what was reported by the son to be multiple falls. He is on blood thinners. The son that he was with does have a known history of substance abuse. She denies that the patient himself has a history of substance abuse or opioid/pain medicine misuse. No other complaints. Patient takes lortabs at times for chorionic pain. Patient is on coumadin 3 mg po daily, INR is 1.8. CT head no signs of bleeding Past surgical and family history obtained from records and per discussion with daughter by phone: Cardiac cath, bipass ( surgical) Family Hx : mother leukemia. Stroke grandmother DS: Diagnosis - Discharge Diagnosis (1) Encephalopathy, toxic Status: Acute (2) Atrial fibrillation with slow ventricular response Status: Acute DS: Medications - Discharge Medications Prescriptions: metoprolol succinate 25 mg PO DAILY #30 tab torsemide 10 mg PO BID@0900,1800 #60 tab DS: Summary Hospital Course: Mr. Limon is a pleasant 73-year-old male with a history of congestive heart failure, CAD, diabetes mellitus, anemia, hypertension and atrial fibrillation who presented to the emergency department on 08/03/2018 due to altered mental status and fall. Patient reports that he fell from bed and when he got up he injured his face. He denied any chest pain, shortness of breath, dizziness or lightheadedness. He has been on pain medication and was given Narcan due to miotic pupils. He had suboptimal response to Narcan. Toxic encephalopathy -Possibly due to opioid use. Currently resolved. Patient is alert oriented 3 coherent. -He clearly states that he does not want to go to SNF. He wants to go home. Atrial fibrillation -He takes metoprolol succinate 50 mg daily at home. His heart rate went down to 30. -Due to heart failure as well as atrial fibrillation, he will need some beta- christelle. -We will reduce beta christelle to metoprolol succinate 25 mg daily. -Continue Warfarin for anti-coagulation. Acute on chronic congestive heart failure systolic Ischemic cardiomyopathy with ejection fraction 30-35% Hypertension -We started patient on torsemide 10 mg twice daily -Continue amiodarone 200 mg nightly, atorvastatin 10 mg daily, isosorbide mononitrate 30 mg nightly -Continue nifedipine 30 mg daily. Possible right internal carotid artery stenosis -Carotid ultrasound indicated potentially hemodynamically significant stenosis. -Vascular surgery evaluated patient and recommended outpatient follow up. - Time Spent with Patient Total time spent providing and/or coordinating discharge services: Less than 30 minutes - Quality: VTE Deep Vein Thrombosis/Pulmonary Embolism Present on Admission: No Exam Vital signs: Vital Signs 08/05/18 20:00 08/05/18 21:00 08/05/18 22:00 Temperature 98.2 F Pulse Rate 73 78 89 Respiratory Rate 20 Blood Pressure 163/74 H Pulse Oximetry 99 Pulse Oximetry [Exertion on Room Air] Pulse Oximetry [Resting on Room Air] 08/05/18 23:00 08/06/18 00:00 08/06/18 01:00 Temperature 98.0 F Pulse Rate 89 94 H 92 H Respiratory Rate 18 Blood Pressure 162/76 H Pulse Oximetry 96 Pulse Oximetry [Exertion on Room Air] Pulse Oximetry [Resting on Room Air] 08/06/18 02:00 08/06/18 03:00 08/06/18 04:00 Temperature Pulse Rate 86 90 91 H Respiratory Rate Blood Pressure Pulse Oximetry Pulse Oximetry [Exertion on Room Air] Pulse Oximetry [Resting on Room Air] 08/06/18 05:00 08/06/18 05:37 08/06/18 07:00 Temperature Pulse Rate 100 H 98 H 88 Respiratory Rate Blood Pressure Pulse Oximetry Pulse Oximetry [Exertion on Room Air] Pulse Oximetry [Resting on Room Air] 08/06/18 07:30 08/06/18 08:00 08/06/18 08:38 Temperature 98.2 F Pulse Rate 69 100 H Respiratory Rate 18 Blood Pressure 146/82 H Pulse Oximetry 96 96 Pulse Oximetry [Exertion on Room Air] Pulse Oximetry [Resting on Room Air] 08/06/18 09:00 08/06/18 10:00 08/06/18 11:00 Temperature Pulse Rate 83 67 79 Respiratory Rate Blood Pressure Pulse Oximetry Pulse Oximetry [Exertion on Room Air] Pulse Oximetry [Resting on Room Air] 08/06/18 11:37 Temperature Pulse Rate Respiratory Rate Blood Pressure Pulse Oximetry Pulse Oximetry [Exertion on Room Air] 99 Pulse Oximetry [Resting on Room Air] 98 Intake & Output 08/06/18 08/06/18 08/07/18 06:59 18:59 06:59 Intake Total 800 / 800 Balance 800 / 800 Weight 82 kg Intake: Oral 800 / 800 Other: # Voids 5 Date of Last Bowel Movement 08/03/18 08/03/18 Results Procedures completed during hospitalization: None. - Impressions ITS Impressions Carotid Doppler Study 08/03/18 00:00 CONCLUSION: 1. Right Internal Carotid Artery: Moderate atherosclerotic plaque with elevated PSV ratio of 2.9 which could indicate hemodynamically significant stenosis. This would be better evaluated with CTA carotids. 2. Left Internal Carotid Artery: Moderate plaque without significant stenosis. Head CT 08/03/18 13:37 CONCLUSION: 1. Microvascular ischemic demyelinative change. No acute intracranial abnormality identified. Neck CTA 08/05/18 00:00 CONCLUSION: 1. Moderate to high-grade stenosis of the proximal right internal carotid artery measuring approximate 70%. 2. No significant stenosis on the left. Chest X-Ray 08/06/18 11:46 CONCLUSION: Cardiomegaly without pulmonary vascular engorgement. Discharge Plan - Discharge Disposition Patient Disposition: /Home Health Service - Discharge Condition Condition: Good - Discharge Order Discharge Orders: Discharge Order (Routine); Ordered 08/06/18 Ordered By: Be Hunt Vascular Surgery Clear for Discharge (Routine); Ordered 08/06/18 Ordered By: Mario Lopez - Discharge Details Anticipated Discharge Date: 08/06/18 - Physicians Team Primary Care Provider: Anjelica Garcia Attending Provider: eB Hunt Other Providers: Efrem Beckford MD ; Mario Lopez MD
== END 2018-08-06 13:24 | disposition home health service (06) ==
LOC: NEPE 13:26 → NEDA 15:30 → HCIS 18:00
PROVIDERS: ADMIT Hospitalist; ATTEND Hospitalist